=== PATIENT | male | born 2000 | race Hispanic/Latino ===

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

== ENCOUNTER 2022-09-28 00:48 | Emergency (ER) | payer SELFPAY ==
[2022-09-28] MEDS ORDERED: Proparacaine 0.5% Opth 15 ML BOT ONE (01:28)
[2022-09-28] MEDS ORDERED: Fluorescein Opthalmic Strip ONE (01:28)
[2022-09-28] MEDS ORDERED: Ibuprofen 200 MG TAB ONE ×2 (01:32→01:37)
== END 2022-09-28 02:41 | disposition home or self-care (01) ==
LOC: ERS 00:48
DX: H16.8 Other keratitis (principal)
CPT/HCPCS: 99283